=== PATIENT | male | born 1955 | race African-American/Black ===

== ENCOUNTER 2021-06-28 04:12 | Day surgery (SDC) | payer OTHER ==
[2021-06-24 09:57] VITALS: BMI 30.4
[2021-06-28] MEDS ORDERED: PROPOFOL 20 ML ONE (09:39)
[2021-06-28] MEDS ORDERED: oxyCODONE HCL 5 MG TABLET PO PRN (11:32)
[2021-06-28] MEDS ORDERED: ACETAMINOPHEN 325 MG TABLET (FP) PO PRN (11:32)
[2021-06-28] MEDS ORDERED: ONDANSETRON 4 MG/2 ML VIAL IVPUSH PRN (11:32)
[2021-06-28 11:40] VITALS: TEMP 98.6
[2021-06-28] MEDS ORDERED: LACTATED RINGERS SOLUTION 1,000 ML IV SCH (11:45)
[2021-06-28 12:14] VITALS: BP 130/80; PULSE 80
== END 2021-06-28 12:05 | disposition home or self-care (01) ==
LOC: JASU-SURG 04:12
PROVIDERS: ATTEND Urology
PROC: 0TF3XZZ Fragmentation in Right Kidney Pelvis, External Approach (ICD-10-PCS; principal; 2021-06-28 09:30)
DX: N20.0 Calculus of kidney (principal)